=== PATIENT | male | born 1970 | race Caucasian/White ===

== ENCOUNTER 2017-09-09 12:26 | Emergency (ER) | payer BC ==
[2017-09-09 12:48] VITALS: BP 122/74
--- NOTE | 2017-09-09 13:22 | EDM.PDOC ---
ED HPI GENERAL MEDICAL PROBLEM - General Chief Complaint: Lower Extremity Injury/Pain Stated Complaint: RT LEG SWOLLEN POST SURGERY Time Seen by Provider: 09/09/17 12:43 Source of Information: Reports: Patient, Family () History Limitations: Reports: No Limitations - History of Present Illness INITIAL COMMENTS - FREE TEXT/NARRATIVE: Vic presents to ED ambulatory s/p rt TKA with Dr. Alicia in [place] done on 09/09. He has swelling and pain to right leg, calf and up into his thigh, worsening x 3 days. Vishal hose are "getting tighter by the day". He is wearing hose as rx'd. He is taking ASA 325mg BID as rx'd. also notes worsening swelling to calf this morning. He has felt a burning sensation to lower leg today and last night. Reports subjective fevers x 24+ hours. He called Ortho correctional probation officer in [place], Dr. Hobson who instructed them to report to ER for an "ultrasound". 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: Aspirin (325mg BID as per Ortho surgeon for DVT prophylax) Right Leg Pain Score (Numeric/FACES): 4 - Related Data Allergies Allergy/AdvReac Type Severity Reaction Status Date / Time morphine Allergy contractionof Verified 09/09/17 14:46 muscle Home Meds: Home Meds Amolodipine 5 mg PO DAILY 09/09/17 [History] Ascorbic Acid [Vitamin C] 1,000 mg PO DAILY 09/09/17 [History] Aspirin [Aspirin EC] 325 mg PO DAILY 09/09/17 [History] B12/Levomefolate Calcium/B-6 [Foltx Tablet] 1,200 mg PO DAILY 09/09/17 [History] Celecoxib [CeleBREX] 200 mg PO DAILY 09/09/17 [History] Cholecalciferol (Vitamin D3) [Vitamin D] 5,000 unit PO DAILY 09/09/17 [History] Gabepentin 300 mg PO TID 09/09/17 [History] Hydrodone 1 tab PO Q2H 09/09/17 [History] Lansoprazole [Prevacid] 30 mg PO DAILY 09/09/17 [History] Losartan Potassium 100 mg PO DAILY 09/09/17 [History] Past Medical History Cardiovascular History: Reports: Hypertension Genitourinary History: Reports: Renal Calculus Musculoskeletal History: Reports: Arthritis Psychiatric History: Reports: None Endocrine/Metabolic History: Reports: Diabetes, Type II - Infectious Disease History Infectious Disease History: Reports: None - Past Surgical History HEENT Surgical History: Reports: Eye Surgery GI Surgical History: Reports: Appendectomy, Bariatric Procedure Neurological Surgical History: Reports: Lumbar Spine Musculoskeletal Surgical History: Reports: Knee Replacement, Shoulder Surgery, Other (See Below) Other Musculoskeletal Surgeries/Procedures:: right Social & Family History - Family History Family Medical History: Noncontributory - Tobacco Use Smoking Status *Q: Current Every Day Smoker Years of Tobacco use: 30 Packs/Tins Daily: 1 - Caffeine Use Caffeine Use: Reports: Coffee, Energy Drinks, Soda, Tea - Recreational Drug Use Recreational Drug Use: No Review of Systems - Review of Systems Review Of Systems: See Below Constitutional: Reports: Fever (intermittent subjective x 2-3 days; resolves with aspirin) Eyes: Reports: No Symptoms Ears: Reports: No Symptoms Mouth/Throat: Reports: No Symptoms Respiratory: Reports: No Symptoms. Denies: Shortness of Breath, Pleuritic Chest Pain, Cough Cardiovascular: Reports: No Symptoms. Denies: Chest Pain, Lightheadedness, Palpitations GI/Abdominal: Reports: No Symptoms Musculoskeletal: Reports: Leg Pain (rt knee, thigh and calf) Neurological: Reports: No Symptoms Psychiatric: Reports: No Symptoms ED EXAM, GENERAL - Physical Exam Exam: See Below Exam Limited By: No Limitations General Appearance: Alert, WD/WN, No Apparent Distress Eye Exam: Bilateral Eye: EOMI, PERRL Nose: Normal Inspection Throat/Mouth: Normal Inspection, Normal Lips, Normal Voice Head: Atraumatic, Normocephalic Neck: Normal Inspection Respiratory/Chest: No Respiratory Distress, Lungs Clear, Normal Breath Sounds Cardiovascular: Normal Peripheral Pulses, Regular Rate, Rhythm, No Murmur, Other (rt LE with swelling from ankle to thigh; mild erythema to medial aspect of knee with warmth) Peripheral Pulses: 2+: Posterior Tibial (L), Posterior Tibial (R), Dorsalis Pedis (L), Dorsalis Pedis (R) GI/Abdominal: Normal Bowel Sounds, Soft (Male) Exam: Deferred Rectal (Males) Exam: Deferred Extremities: Other (as noted above under musculoskeletal exam) Neurological: Alert, Oriented, Normal Cognition Psychiatric: Normal Affect, Normal Mood Course - Vital Signs Last Recorded V/S: Last Vital Signs Temp 97.8 F 09/09/17 12:47 Pulse 86 09/09/17 12:47 Resp 20 09/09/17 12:47 BP 122/74 09/09/17 12:47 Pulse Ox 99 09/09/17 12:47 - Orders/Labs/Meds Labs: Laboratory Tests 09/09/17 09/09/17 Range/Units 15:05 15:05 WBC 11.20 H (4.23-9.07) K/mm3 RBC 3.95 L (4.63-6.08) M/mm3 Hgb 12.7 L (13.7-17.5) gm/L Hct 38.1 L (40.1-51.0) % MCV 96.5 H (79.0-92.2) fl MCH 32.2 (25.7-32.2) pg MCHC 33.3 (32.2-35.5) g/dl RDW Std Deviation 45.7 H (35.1-43.9) fL Plt Count 341 H (163-337) K/mm3 MPV 9.5 (9.4-12.3) fl Neut % (Auto) 65.5 (34.0-67.9) % Lymph % (Auto) 13.9 L (21.8-53.1) % [place] % (Auto) 11.9 (5.3-12.2) % Eos % (Auto) 7.8 H (0.8-7.0) Baso % (Auto) 0.5 (0.1-1.2) % Neut # (Auto) 7.34 H (1.78-5.38) K/mm3 Lymph # (Auto) 1.56 (1.32-3.57) K/mm3 [place] # (Auto) 1.33 H (0.30-0.82) K/mm3 Eos # (Auto) 0.87 H (0.04-0.54) K/mm3 Baso # (Auto) 0.06 (0.01-0.08) K/mm3 Sodium 137 (136-145) mEq/L Potassium 4.2 (3.5-5.1) mEq/L Chloride 101 (98-107) mEq/L Carbon Dioxide 31 (21-32) mEq/L Anion Gap 9.2 (5-15) BUN 13 (7-18) mg/dL Creatinine 0.7 (0.7-1.3) mg/dL Est Cr Clr Drug Dosing 141.65 mL/min Estimated GFR (MDRD) > 60 (>60) mL/min BUN/Creatinine Ratio 18.6 H (14-18) Glucose 100 (74-106) mg/dL Calcium 9.0 (8.5-10.1) mg/dL Meds: Medications Discontinued Medications Generic Name Dose Route Start Last Admin Trade Name Freq PRN Reason Stop Dose Admin Cephalexin 500 mg 09/09/17 16:08 09/09/17 16:13 Keflex PO 09/09/17 16:09 500 mg ONETIME ONE Administration - Radiology Interpretation Free Text/Narrative:: Negative venous doppler to left leg for DVT read by Dr. Euceda. - Re-Assessments/Exams Free Text/Narrative Re-Assessment/Exam: 09/09/17 16:05 WBC slight elevation noted, could be postop stress however due to erythema noted will treat with Keflex to cover early evolving cellulitis. Departure - Departure Time of Disposition: 16:06 Disposition: Home, Self-Care 01 Condition: Good Clinical Impression: Swelling of lower extremity - Discharge Information Referrals: Jagdeep Alicia MD [Primary Care Provider] - Forms: ED Department Discharge Additional Instructions: Ultrasound of leg is negative for DVT (blood clot) Due to mild erythema (redness) and swelling will treat with antibiotic - Keflex 3 times daily x 5 days. Follow up with Orthopedics this next week for recheck of wound, swelling, redness.
--- NOTE | 2017-09-09 14:45 | US ---
Right lower extremity deep venous ultrasound: Duplex and color flow imaging was obtained of the right common femoral, proximal greater saphenous, superficial femoral, popliteal, posterior tibial and peroneal veins. Left common femoral vein was also evaluated. Findings: Posterior tibial and peroneal veins were not seen well enough to confirm compressibility. There is, however normal phasic flow and augmentation within these veins. Other veins show normal phasic flow, augmentation and compression. Impression: 1. No findings are seen to indicate deep venous thrombosis within the right lower extremity or within the left common femoral vein. Diagnostic code #1
[2017-09-09] MEDS ORDERED: Cephalexin 500 MG Cap PO ONE (16:08)
[2017-09-09] MEDS ORDERED: Cephalexin 500 MG Cap ONE (16:37)
== END 2017-09-09 16:40 | disposition home or self-care (01) ==
LOC: SUPCPDRO 12:26 → JD.ED 12:26
DX: M79.89 Other specified soft tissue disorders (principal); I10 Essential (primary) hypertension; E11.9 Type 2 diabetes mellitus without complications; F17.210 Nicotine dependence, cigarettes, uncomplicated; Z79.82 Long term (current) use of aspirin; Z88.5 Allergy status to narcotic agent
CPT/HCPCS: 36415; 80048; 85025; 93971; 99284; A9270; 99283